=== PATIENT | male | born 1945 | race Caucasian/White ===

== ENCOUNTER 2016-12-30 09:49 | Inpatient (IN) | payer OTHER ==
--- NOTE | 2016-12-30 10:00 | EDPHY ---
HPI/HX/ROS/PE/MDM Narrative: CHIEF COMPLAINT: Chest pain. HPI: The patient is a 71-year-old male who complains of intermittent chest pain for the past week. His pain radiates into his right shoulder. He states he has experienced bouts of this chest pain at least once per day. He attributed his pain to indigestion. This morning while carrying some boards he developed sharp chest pain across the top of his chest. This pain lasted 10 minutes in duration. No associated nausea or diaphoresis. Patient has no cardiac history. REVIEW OF SYSTEMS: Aside from elements discussed in the HPI, a comprehensive 10-point review of systems was reviewed and is negative. PMH: High cholesterol. No cardiac history. SOCIAL HISTORY: . 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 Nonsmoker. PHYSICAL EXAM: General: Patient is alert, in no acute distress. ENT: Eyes are normal to inspection. ENT inspection normal. Neck: Normal inspection. Full range of motion. Respiratory: No respiratory distress. Breath sounds normal bilaterally. Cardiovascular: Regular rate and rhythm. Strong peripheral pulses. Abdomen: The abdomen is nontender to palpation. There are no peritoneal signs. There are normal bowel sounds. Back: Normal to inspection. No tenderness to palpation. Skin: Normal color. No rash. Warm and dry. Extremities: Normal appearance. Full range of motion. Neuro: Oriented x3. Normal motor function. Normal sensory function. ED Course: Patient presents with intermittent chest pain for the past week. Plan for cardiac workup including chest x-ray, EKG, Troponin, and basic lab work. EKG was ordered and interpreted by myself: Sinus rhythm. Please see [employer] system for official reading. Chest x-ray is normal. Troponin is elevated. Plan to consult cardiology. Lab work otherwise normal. 1045: I spoke to Dr. Villarreal, Cardiology, he will consult on the patient. 1050: I discussed findings with the patient. He agrees with the plan for admission. 1100: I spoke to the hospitalist, Dr. Orozco, who accepts patient for admission. MDM: This patient presents with chest pain that is concerning for ACS. This is confirmed by elevated troponin. I see no evidence for PE, TAD, PNA, PTX or chest wall trauma. - Data Points Imaging Results: Imaging Impressions Chest X-Ray 12/30/16 10:02 Impression: No acute findings in the chest. Imaging: I viewed and interpreted images myself Laboratory Results: Laboratory Results 12/30/16 10:04 12/30/16 10:04 12/30/16 12/30/16 10:04 10:04 WBC 5.57 10^3/uL 10^3/uL (3.80-9.50) RBC 4.80 10^6/uL 10^6/uL (4.40-6.38) Hgb 15.3 g/dL g/dL (13.7-17.5) Hct 45.4 % % (40.0-51.0) MCV 94.6 fL fL (81.5-99.8) MCH 31.9 pg pg (27.9-34.1) MCHC 33.7 g/dL g/dL (32.4-36.7) RDW 12.6 % % (11.5-15.2) Plt Count 181 10^3/uL 10^3/uL (150-400) MPV 11.0 fL fL (8.7-11.7) Neut % (Auto) 53.2 % % (39.3-74.2) Lymph % (Auto) 32.7 % % (15.0-45.0) Bowie % (Auto) 9.9 % % (4.5-13.0) Eos % (Auto) 3.1 % % (0.6-7.6) Baso % (Auto) 0.7 % % (0.3-1.7) Nucleat RBC Rel Count 0.0 % % (0.0-0.2) Absolute Neuts (auto) 2.97 10^3/uL 10^3/uL (1.70-6.50) Absolute Lymphs (auto) 1.82 10^3/uL 10^3/uL (1.00-3.00) Absolute Monos (auto) 0.55 10^3/uL 10^3/uL (0.30-0.80) Absolute Eos (auto) 0.17 10^3/uL 10^3/uL (0.03-0.40) Absolute Basos (auto) 0.04 10^3/uL 10^3/uL (0.02-0.10) Absolute Nucleated RBC 0.00 10^3/uL 10^3/uL (0-0.01) Immature Gran % 0.4 % % (0.0-1.1) Immature Gran # 0.02 10^3/uL 10^3/uL (0.00-0.10) Sodium 140 mEq/L mEq/L (134-144) Potassium 4.2 mEq/L mEq/L (3.5-5.2) Chloride 108 mEq/L mEq/L (97-110) Carbon Dioxide 20 mEq/l L mEq/l (22-31) Anion Gap 12 mEq/L mEq/L (8-16) BUN 21 mg/dL mg/dL (7-23) Creatinine 0.9 mg/dL mg/dL (0.7-1.3) Estimated GFR > 60 Glucose 97 mg/dL mg/dL (70-100) Calcium 9.0 mg/dL mg/dL (8.5-10.4) Troponin I 0.090 ng/mL H ng/mL (0-0.034) Medications Given: Discontinued Medications Aspirin (Aspirin) 324 mg PO EDNOW ONE Stop: 12/30/16 10:03 Last Admin: 12/30/16 10:07 Dose: 324 mg General Initial Vital Signs: Initial Vital Signs Temperature (C) 36.6 C 12/30/16 09:52 Heart Rate 73 12/30/16 09:52 Respiratory Rate 18 12/30/16 09:52 Blood Pressure 153/92 H 12/30/16 09:52 O2 Sat (%) 97 12/30/16 09:52 O2 Delivery Mode Nasal Cannula O2 (L/minute) 2.5 Allergies/Adverse Reactions: No Known Allergies Allergy (Unverified 12/30/16 09:51) Home Medications: Medication Instructions Recorded Acetaminophen/ASA/Caffeine 1 each PO DAILY PRN 12/30/16 [Excedrin Tablet (*)] Atorvastatin Calcium [Lipitor 40 40 mg PO DAILY 12/30/16 mg (*)] Aspirin [Aspirin 81mg (*)] 81 mg PO DAILY tab.chew 01/01/17 Carvedilol [Coreg (*)] 3.125 mg PO BIDMEAL #60 tab 01/01/17 Clopidogrel Bisulfate [Plavix (*)] 75 mg PO DAILY #30 tab 01/01/17 Departure - Departure Disposition: [facility] Inpatient Acute Clinical Impression: NSTEMI (non-ST elevated myocardial infarction) Chest pain Qualifiers: Chest pain type: unspecified Qualified Code(s): R07.9 - Chest pain, unspecified Condition: Fair Report Scribed for: Luis Manuel Bhatt Report Scribed by: Evelyn Moraes Date of Report: 12/30/16 Time of Report: 09:56 Physician Review and Approval Statement: Portions of this note were transcribed by a diagnostic medical sonographer. I personally performed the history, physical exam, and medical decision-making; and confirmed the accuracy of the information in the transcribed note.
[2016-12-30] MEDS ORDERED: ASPIRIN 81 MG CHEWABLE TAB PO ONE (10:02)
--- NOTE | 2016-12-30 10:02 | CPEKG ---
Heart Rate: 59 RR Interval: 1017 P-R Interval: 196 QRSD Interval: 104 QT Interval: 448 QTC Interval: 444 P [place]: 59 QRS [place]: -57 T Wave [place]: 59 EKG Severity - ABNORMAL ECG - EKG Impression: SINUS RHYTHM EKG Impression: LAD, CONSIDER LEFT ANTERIOR FASCICULAR BLOCK EKG Impression: BORDERLINE T WAVE ABNORMALITIES Electronically Signed By: Farhan Cortez 02-Jan-2017 14:29:23
[2016-12-30 10:18] LABS: % IMMATURE GRANULYOCYTES 0.4 % (0.0-1.1); ABSOLUTE IMMATURE GRANULOCYTES 0.02 10^3/uL (0.00-0.10); ADD DIFF? NO; ADD MORPH? NO; ADD SCAN? NO; ATYPICAL LYMPHOCYTE FLAG 0 (0-99); FRAGMENT RBC FLAG 0 (0-99); HEMATOCRIT 45.4 % (40.0-51.0); HEMOGLOBIN 15.3 g/dL (13.7-17.5); LEFT SHIFT FLG 0 (0-99); LIPEMIA HEMOLYSIS FLAG 80 (0-99); MEAN CELL HEMOGLOBIN 31.9 pg (27.9-34.1); MEAN CELL HEMOGLOBIN CONCENTR. 33.7 g/dL (32.4-36.7); MEAN CELL VOLUME 94.6 fL (81.5-99.8); PLATELET CLUMPS FLAG 0 (0-99); PLATELET COUNT 181 10^3/uL (150-400); RED CELL DISTRIBUTION WIDTH 12.6 % (11.5-15.2)
[2016-12-30 10:28] LABS: ANION GAP 12 mEq/L (8-16); CARBON DIOXIDE 20 mEq/l (22-31); CHLORIDE 108 mEq/L (97-110); CREATININE 0.9 mg/dL (0.7-1.3); GLOMERULAR FILTRATION RATE > 60; GLUCOSE 97 mg/dL (70-100); POTASSIUM 4.2 mEq/L (3.5-5.2); SODIUM 140 mEq/L (134-144)
[2016-12-30] MEDS ORDERED: NITROGLYCERIN 0.4 MG BTL SL PRN (13:15)
[2016-12-30] MEDS ORDERED: ATROPINE SULFATE 1 MG/10 ML SYR IVP PRN (13:15)
[2016-12-30] MEDS ORDERED: LIDOCAINE 1% 300 MG/30 ML SDV ONE (13:15)
[2016-12-30] MEDS ORDERED: ONDANSETRON 4 MG/2 ML VIAL IVP PRN (13:15)
[2016-12-30] MEDS ORDERED: HYDROCODONE/APAP 5/325 TAB PO PRN (13:15)
[2016-12-30] MEDS ORDERED: OXYCODONE/APAP 5/325 TAB PO PRN (13:15)
[2016-12-30] MEDS ORDERED: IOPAMIDOL (ISOVUE-370) 150 ML BTL IV ONE (13:16)
[2016-12-30] MEDS ORDERED: MIDAZOLAM 2 MG/2 ML VIAL ONE (13:16)
[2016-12-30] MEDS ORDERED: fentaNYL 100 MCG/2 ML INJ ONE (13:16)
--- NOTE | 2016-12-30 13:54 | GCON ---
[f rep st] CONSULTATION CARDIOVASCULAR CONSULTATION I have been asked by the emergency room staff to do cardiovascular consultation on the patient for chest pain. HISTORY OF PRESENT ILLNESS: The patient has had several weeks of chest discomfort often involving his right shoulder. He also has shoulder pain on the left side. He has been playing golf, and pain has been going on for a week to 10 days. It is a sharp pain. When it comes, it may last 10 minutes. It does not come on or go away with exertion, stress or rest. This morning, he was taking 2 boards 100 yards out to his barn, and he got a pain that was 7/10 lasting 10 minutes without shortness of breath, dizziness, lightheadedness, nausea, vomiting, sweating, or near syncopal symptoms. He has not had orthopnea , PND, dyspnea on exertion. He decided to come into the hospital to be evaluated. He has no previous history of this prior to 10 days ago. He does not have rheumatic disease, claudication or cerebrovascular disease. No hemoptysis, tuberculosis, peripheral edema. No hot swollen joints or major rashes. No trauma of the head, neck, or chest. No dysuria frequency or pyuria. No upper respiratory symptoms of any kind. No runny nose, sore throat , sinus issues. CARDIAC RISK FACTORS: His own cardiac risk factors are positive for a significant family history of premature coronary disease, for obesity and for dyslipidemia. His cardiac risk factors are negative for hypertension, diabetes , hyperuricemia, or smoking. FAMILY HISTORY: The patient's father on the patient's 23th birthday. The father was 55 years old at the time. REVIEW OF SYSTEMS: Negative for any sign other than what is noted above. A 12- point review of systems is negative. 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 He lives with his partner. He has some children, 1 of whom has a migraine for health issues. Otherwise, the children are healthy. He exercises by playing golf. He tries to get 15,000 steps a day, which he can do 5 days a week. He does not smoke. Does not drink significant amounts of alcohol. MEDICATIONS: Listed on the record. ALLERGIES: Also listed on the record. PHYSICAL EXAMINATION: VITAL SIGNS: Blood pressure 130/70, heart rate 66, respiratory rate 12, temperature 98. HEENT: Pupils equal, round, reactive. Mucous membranes and mouth moist. NECK: Supple. CARDIOVASCULAR: S1, S2. Soft systolic murmur at the left sternal border. No diastolic murmur. No S3, S4. No rubs. PULMONARY: Rhonchi bilaterally. No rales, wheezing, or dullness. ABDOMEN: Soft, nontender, without masses. CVA: No tenderness. SKIN: Age-related changes. EXTREMITIES: No edema, inflammation or ulceration. PSYCH: No obvious anxiety or depression. NEURO: Cranial nerves 2 -12 grossly normal. Motor and sensory intact. LABS AND STUDIES: His troponin is mildly elevated. Creatinine and glucose are reportedly within normal limits. His EKG shows no acute changes per the emergency room; I have not seen that myself. His white count is 5.5, hematocrit 45, platelets are 181. Sodium 140, potassium 4.2, chloride 108, CO2 of 20, BUN 20, creatinine 0.9. Troponin is 0.09, which is an indeterminate value. His electrocardiogram showed diffuse nonspecific ST-T changes with terminal T- wave inversion in V2. It is abnormal with borderline left axis deviation. Chest x-ray shows no acute findings. ASSESSMENT AND PLAN: 1. Chest pain. 2. Abnormal troponin. He has had a chest pain syndrome. He has an indeterminate troponin. We will proceed with coronary angiography. I have laid out for him and his partner, whom I know well because I took care of her father, all the options including second opinions, medical therapy, observation, noninvasive testing, watching him in the hospital, doing nothing, nontraditional therapy, etc. I have also gone over with him the risks of catheterization which include stroke, , limb loss, renal failure, myocardial infarction, infection, bleeding, and he would like to proceed with angiography. He knows what the options are. He knows what we can offer, and he would like to stay and get a definitive diagnosis. He does have significant risk factors for coronary disease with his family history, his obesity, his hyperlipidemia. In terms of the differential diagnosis, he may well have musculoskeletal problems or GI problems, although he does not have a lot of GI symptoms. There is nothing to suggest disease of the great vessels as his pulses are full and equal. There is nothing to suggest significant valvular disease or other cardiomyopathy or pericardial disease so we will do an echocardiographic study and see if that helps, and he will get further workup as we work through this process. I have answered all of he and his partner's questions, and they would like to proceed. I have talked to the emergency room physician about this, and we will proceed. /[id number]/MODL and [id number]/MODL [facility]ENTERJannet
[2016-12-30] MEDS ORDERED: ACETAMINOPHEN 325 MG TAB PO PRN (14:03)
--- NOTE | 2016-12-30 14:39 | GHP ---
[f rep st] HISTORY AND PHYSICAL DATE OF ADMISSION: 12/30/2016 CHIEF COMPLAINT: Chest pain. HISTORY OF PRESENT ILLNESS: The patient is a 71-year-old male who has been having chest pain off an d on for the last 2 weeks. He describes it as sharp across the front of his chest, radiating to his shoulder and his jaw. He has gotten chest pain with ambulation and had an episode yesterday while golfing. Sometimes it gets better with rest, sometimes not. He also gets this sometimes at night. Each episode lasts anywhere from 10-30 minutes. It is nonpleuritic. He does have some associated shortness of breath. PAST MEDICAL HISTORY: Hyperlipidemia. MEDICATIONS: Please see computer record for full detailed list. ALLERGIES: No known drug allergies. SOCIAL HISTORY: He smoked for 10 years, but quit 20 years ago. He drinks wine with dinner. He reyes es with his . 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 REVIEW OF SYSTEMS: Complete review of systems obtained. Review of systems is negative on constitut ional, HEENT, GI, pulmonary, cardiovascular, , hematology, skin, musculoskeletal, endocrine and ps ych. Pertinent positives as in HPI. FAMILY HISTORY: Positive for coronary artery disease. His father of a massive MA at age 55 an d had suffered from coronary disease for many years prior to that. PHYSICAL EXAMINATION: GENERAL: Well-developed, well-nourished male in no distress. VITAL SIGNS: Temperature 36.6, pulse 73, blood pressure 153/92, saturating 97% on room air. EYES: Normal conjun ctivae. Pupils react to light. ENT: Normal ears and nose. Hearing intact. Normal lips and teeth . Oropharynx moist. NECK: Trachea midline. No thyromegaly. CHEST: Normal respiratory effort. Lungs clear to auscultation bilaterally. CARDIOVASCULAR: Regular rate and rhythm. No murmur. No lower extremity edema. ABDOMEN: Soft, nontender. No hepatosplenomegaly. SKIN: Warm, dry, intact . No rash. MUSCULOSKELETAL: No cyanosis or clubbing. Strength 5/5 upper and lower extremities. NEUROLOGIC: Cranial nerves intact. Normal sensation to light touch. PSYCHIATRIC: Alert and orien curtis x3. Normal affect. Normal judgment. Normal memory. LABORATORY DATA: White count 5.57, hematocrit 45.4, platelets 181. Sodium 140, potassium 4.2, chlo ride 108, bicarb 20, BUN 21, creatinine 0.9, glucose 97. Troponin 0.09. EKG viewed by me. My pers onal interpretation is normal sinus rhythm and anterior lateral T-wave flattening. Chest x-ray is n egative. ASSESSMENT AND PLAN: 1. Chest pain. History is quite concerning for ischemia and he also has multiple risk factors incl uding family history, hyperlipidemia and hypertension. His initial troponin is borderline elevated. Cardiology has already seen him in consultation. Initially, there was talk of bringing him immedi ately to the catheterization lab, but Dr. Villarreal has now decided to trend troponins overnight and pu rsue stress testing in the morning. If there is any recurrence of chest pain or bump in troponin ov ashlee, could also reconsider cardiac catheterization in the morning. For now, we will treat medic ally with morphine as needed, nitroglycerin as needed and aspirin. 2. Hyperlipidemia. We will continue his atorvastatin and check lipids in the morning. 3. Hypertension. Blood pressure is quite elevated here, although he denies having a history of hig h blood pressure in the past. This will be monitored and, if persistent, may need to initiate medic ations prior to discharge. CODE STATUS: Full. ADMISSION STATUS: 1. Will admit to observation. 2. DVT prophylaxis is low risk and pending possible procedure, so hold pharmacologic prophylaxis. /[id number]/MODL
[2016-12-30] MEDS: CLOPIDOGREL BISULFATE 75 MG TAB PO SCH (15:01)
[2016-12-31 04:52] LABS: CHOLESTEROL 163 mg/dL (140-220); CHOLESTEROL/HDL RATIO 3.13 RATIO (1.00-4.97); HIGH DENSITY LIPOPROTEIN 52 mg/dL (40-65); LDL/HDL RATIO 1.69 RATIO (1.00-3.64); LOW DENSITY LIPOPROTEIN 88 mg/dL (80-100); NON-HIGH DENSITY LIPOPROTEIN 111 mg/dL (90-129); TRIGLYCERIDE 117 mg/dL (40-150); VERY LOW DENSITY LIPOPROTEINS 23 mg/dL (8-25)
[2016-12-31 05:04] LABS: TROPONIN I 0.122 ng/mL (0-0.034)
--- NOTE | 2016-12-31 05:59 | CPEKG ---
Heart Rate: 49 RR Interval: 1224 P-R Interval: 204 QRSD Interval: 102 QT Interval: 488 QTC Interval: 441 P [place]: 64 QRS [place]: -31 T Wave [place]: 69 EKG Severity - BORDERLINE ECG - EKG Impression: SINUS BRADYCARDIA EKG Impression: LEFT AXIS DEVIATION EKG Impression: BORDERLINE T WAVE ABNORMALITIES Electronically Signed By: Farhan Cortez 31-Dec-2016 21:29:04
[2016-12-31] MEDS: ATORVASTATIN CALCIUM 40 MG TAB PO SCH (08:00)
[2016-12-31] MEDS: CLOPIDOGREL BISULFATE 75 MG TAB PO SCH (08:00)
[2016-12-31] MEDS: ASPIRIN 81 MG CHEWABLE TAB PO SCH (08:00)
[2016-12-31] MEDS ORDERED: ATORVASTATIN CALCIUM 20 MG TAB PO SCH (09:00)
--- NOTE | 2016-12-31 09:01 | ECHO ---
[id number] + + [address] : : [place] [address] : : [phone] + Adult Echocardiographic Report + -+ :Name: PITER MAHARAJ ESteverton Date: 12/30/2016 12:55 PM BP: 164/90 mmHg : : Hospital Admission Number: [id number] : :: 1945 Gender: Male Height: 74 in : :Age: 71 yrs Race: WH Weight: 219 lb : :Reason For Study: chest pain : : BSA: 2.3 meters 2: :History: chest pain : + -+ MMode/2D Measurements \T\ Calculations IVSd: 1.1 cm RVDd: 2.8 cm FS: 33.7 % Ao root diam: LVPWd: 1.2 cm LVIDd: 4.5 cm EDV(Teich): 3.7 cm LVIDs: 3.0 cm 90.4 ml ESV(Teich): 33.7 ml EF(Teich): 62.7 % LVLd ap4: 8.2 cm SV(MOD-sp4): EDV(MOD-sp4): 68.0 ml 119.0 ml LVLs ap4: 7.3 cm ESV(MOD-sp4): 51.0 ml EF(MOD-sp4): 57.1 % Normal Measurement Values: + + :LVIDd (3.5-5.7cm) IVSd (0.6-1.1cm) LVPWd (0.6-1.1cm) Aortic Root (2.0-3.7cm)Left Atrium (1.5-4.0cm): :LV Vol(d) (76-115ml) LV Vol(s) (29-48ml) Ejec Fraction (50-65%)PV Anastacio (0.6- 1.2m/s) TV Anastacio (0.4-1.0m/s) : :MV E Anastacio (0.8-1.0m/s)MV A Anastacio (0.3-1.0m/s)LVOT Anastacio (0.7-1.2m/s) Asc Ao Anastacio ( 0.9-1.8m/s) : + + Doppler Measurements \T\ Calculations MV E max anastacio: Ao V2 max: LV V1 max: PA V2 max: 66.1 cm/sec 131.7 cm/sec 111.6 cm/sec 76.4 cm/sec MV A max anastacio: Ao max PG: LV V1 max PG: PA max P.1 cm/sec 6.9 mmHg 5.0 mmHg 2.3 mmHg MV E/A: 0.61 MV dec time: 0.30 sec Left Ventricle The left ventricle is normal in size and function. There is mild concentric left ventricular hypertrophy. Ejection Fraction = 55-60%. Very small area of questionable hypokinesis versus normal variant at hinge point in basal/inferior wall. Right Ventricle The right ventricle is normal in size and function. Atria The left atrial size is normal. Right atrial size is normal. Mitral Valve The mitral valve is normal in structure and function. There is no mitral valve stenosis. There is no mitral regurgitation noted. Tricuspid Valve The tricuspid valve is normal in structure and function. There is no tricuspid stenosis. No tricuspid regurgitation. Aortic Valve The aortic valve is trileaflet. There is no aortic stenosis. Mild aortic regurgitation. Pulmonic Valve The pulmonic valve is not well visualized. Great Vessels The aortic root is normal size. Mildly dilated ascending aorta. Pericardium/Pleural There is no pericardial effusion. Conclusion A two-dimensional transthoracic echocardiogram with M-mode and Doppler was performed. A two-dimensional transthoracic echocardiogram with M-mode and Doppler was performed. The left ventricle is normal in size and function. There is mild concentric left ventricular hypertrophy. Ejection Fraction = 55-60%. Very small area of questionable hypokinesis versus normal variant at hinge point in basal/inferior wall. Mild aortic regurgitation. Mildly dilated ascending aorta. Final Reading Physician: Aram Corbett, Melectronically signed on 12/31/2016 09:00 AM Ordering Physician: Luis Manuel Bhatt Performed By: Anjana Puente
--- NOTE | 2016-12-31 09:26 | SOAPPROG ---
[facility] Progress Note Assessment/Plan: Assessment: 1. Chest pain 2. Elevated troponin 3. Obesity 4. Hyperlipidemia 5. Family history of premature coronary artery disease. At this time his troponin has turned positive. He agrees to coronary angiography. I have reviewed with him the risk of catheterization include stroke limb loss renal failure myocardial infarction infection bleeding etc I reviewed with him the options of observing him, further noninvasive testing, medical therapy, hospital observation, doing nothing, getting 2nd opinions, or nontraditional therapy that is available to him. He and his partner would like to proceed with coronary angiography. I have reviewed this with Dr. Vanegas who is going to perform the procedure this morning. I am happy to follow up the patient after he is discharged. All his questions have been answered. I have answered his partners questions. Plan: 12/31/16 09:29 The Subjective: He is feeling well today. He does not have chest pain He is not complaining of shortness of breath. He is very concerned about the different options are for the cause of his pain. I have reviewed some of this with him. I have answered his questions. He is not having new complaints of nausea vomiting diarrhea etc. He is not having neurologic complaints He is not having palpitations. Objective: Vital Signs Temp Pulse Resp BP Pulse Ox 37.3 C 52 L 16 138/91 H 93 12/31/16 07:02 12/31/16 07:02 12/31/16 07:02 12/31/16 07:02 12/31/16 07:02 12/30/16 12/31/16 01/01/17 05:59 05:59 05:59 Intake Total 0 Balance 0 Laboratory Tests 12/30/16 12/30/16 12/30/16 10:04 10:04 15:56 WBC 5.57 Hct 45.4 Plt Count 181 Troponin I 0.090 H 0.101 H Triglycerides Cholesterol LDL Cholesterol, Calc HDL Cholesterol 12/31/16 03:47 WBC Hct Plt Count Troponin I 0.122 H Triglycerides 117 Cholesterol 163 LDL Cholesterol, Calc 88 HDL Cholesterol 52 Physical Exam - Physical Exam General Appearance: alert, no apparent distress EENT: PERRL/EOMI Respiratory: lungs clear Cardiac/Chest: regular rate, rhythm Skin: normal color Neuro/Psych: alert, normal mood/affect ICD10 Worksheet Patient Problems: Problems Problem Status Onset Chest pain Acute Elevated troponin Acute
[2016-12-31] MEDS ORDERED: fentaNYL 100 MCG/2 ML INJ ONE ×2 (09:40→10:46)
[2016-12-31] MEDS ORDERED: LIDOCAINE 1% 300 MG/30 ML SDV ONE (09:40)
[2016-12-31] MEDS ORDERED: IOPAMIDOL (ISOVUE-370) 150 ML BTL IV ONE (09:41)
[2016-12-31] MEDS ORDERED: MIDAZOLAM 2 MG/2 ML VIAL ONE ×2 (09:41→10:46)
[2016-12-31] MEDS ORDERED: BIVALIRUDIN 250 MG/5 ML VIAL IV ONE ×2 (09:53→10:46)
[2016-12-31] MEDS ORDERED: NITROGLYCERIN 1,500 MCG/15 ML VIAL MISC ONE (09:53)
[2016-12-31] MEDS ORDERED: CLOPIDOGREL BISULFATE 75 MG TAB ONE ×2 (10:57→10:58)
[2016-12-31] MEDS ORDERED: LORazepam 2 MG/ML INJ IVP PRN (11:15)
[2016-12-31] MEDS ORDERED: CLOPIDOGREL BISULFATE 75 MG TAB PO ONE (11:15)
[2016-12-31] MEDS ORDERED: TEMAZEPAM 15 MG CAP PO PRN (11:15)
[2016-12-31] MEDS ORDERED: CITRIC ACID/SODIUM CITRATE 30 ML UDCUP ONE (11:54)
[2016-12-31] MEDS ORDERED: CITRIC ACID/SODIUM CITRATE 30 ML UDCUP PO ONE (12:00)
--- NOTE | 2016-12-31 12:01 | CPEKG ---
Heart Rate: 56 RR Interval: 1071 P-R Interval: 204 QRSD Interval: 100 QT Interval: 488 QTC Interval: 472 P [place]: 68 QRS [place]: -39 T Wave [place]: 60 EKG Severity - OTHERWISE NORMAL ECG - EKG Impression: SINUS RHYTHM EKG Impression: LEFT AXIS DEVIATION Electronically Signed By: Farhan Cortez 31-Dec-2016 21:29:08
[2016-12-31] MEDS ORDERED: LABETALOL HCL 50 MG/10 ML SYR ONE (12:12)
[2016-12-31] MEDS ORDERED: LABETALOL HCL 50 MG/10 ML SYR IVP ONE (12:30)
--- NOTE | 2016-12-31 14:02 | HOSPPROG ---
Hospitalist Progress Note Assessment/Plan: * Non STEMI s/p stent circ -ASA, Plavix, Coreg * Hyperlipidemia -patient admits to taking his statin very inconsistently -educated regarding the importance of statin tx * HTN - coreg started Subjective: No new complaints. Objective: Vital Signs Temp Pulse Resp BP Pulse Ox 36.4 C 48 L 14 126/72 H 96 12/31/16 12:59 12/31/16 12:59 12/31/16 12:59 12/31/16 12:59 12/31/16 12:59 12/30/16 12/31/16 01/01/17 05:59 05:59 05:59 Intake Total 0 350 Balance 0 350 d/w Dr. Vanegas and Aric - to chemical lab technician this am - circ stented ECHO - hypokinesis of inferior wall - Physical Exam Constitutional: no apparent distress, appears nourished, not in pain Cardiovascular: regular rate and rhythym, no murmur, rub, or gallop Respiratory: no respiratory distress, no rales or rhonchi, clear to auscultation Gastrointestinal: normoactive bowel sounds, soft, non-tender abdomen, no palpable masses Skin: no rashes or abrasions, no fluctuance, no induration Neurologic: AAOx3, sensation intact bilaterally Psychiatric: interacting appropriately, not anxious, not encephalopathic, thought process linear ICD10 Worksheet Patient Problems: Problems Problem Status Onset Chest pain Acute Elevated troponin Acute
[2016-12-31] MEDS: CARVEDILOL 3.125 MG TAB PO SCH (17:52)
--- NOTE | 2016-12-31 18:21 | CPIP ---
[f rep st] INVASIVE CARDIAC PROCEDURE DATE OF PROCEDURE: 12/31/2016 PROCEDURE: 1. Coronary angiography. 2. Left ventriculography. 3. Stenting of circumflex coronary artery with Synergy drug-eluting stent. INDICATION: Acute coronary syndrome with elevated troponin. ACCESS: Patient was prepped and draped in sterile fashion. 1% lidocaine was used to anesthetize th e right inguinal region. A 6-Algerian introducer sheath was placed selectively into the right common femoral artery via modified Seldinger technique. CORONARY ANGIOGRAPHY: A 6-Algerian JL 4.5 was advanced to the left main coronary artery and images ob tained. The left main coronary artery bifurcated into an LAD and circumflex coronary arteries. The left main was relatively short but appeared normal. The left anterior descending coronary artery g ave rise to 2 diagonal branches. The left anterior descending coronary artery was diffusely disease d. In the proximal segment of the left anterior descending coronary artery, there was a long segmen rubina 35% stenosis present. In the mid vessel, there is a single, discrete, 40% to 50% stenosis prese nt. The diagonal arteries appear free of any significant disease. The circumflex coronary artery g ave rise to 4 OM branches. The circumflex coronary artery had mild diffuse disease throughout. In the mid vessel, there was a single discrete 90% stenosis present. A 6-Algerian JR4 was advanced to th e right coronary artery and images obtained. The right coronary artery was dominant. The right cor onary artery had a single discrete 50% stenosis in the midvessel. LEFT VENTRICULOGRAPHY: A 6-Algerian pigtail catheter was advanced into the left ventricle and images obtained. Left ventricle is normal size, had normal systolic function. The estimated ejection frac tion was 60%. There were no segmental wall motion abnormalities present. The left ventricular end- diastolic pressure was 16 mmHg. PERCUTANEOUS CORONARY INTERVENTION OF CIRCUMFLEX CORONARY ARTERY: A 6-Algerian EBU 3.75 was advanced to the left main coronary artery and images obtained. Angiography confirmed the presence of a high- grade stenosis involving the circumflex coronary artery. A Luge wire was placed in the distal vesse l and position verified by angiography. A 2.5 x 15 Emerge balloon was used to pre-dilate the lesion . Followup angiography demonstrated significant residual stenosis. A 2.5 x 20 Synergy drug-eluting stent was then placed across the lesion, deployed. Followup angiography demonstrated FARHAN 3 flow. No residual stenosis. COMPLICATIONS: None. CONCLUSIONS: 1. 40% to 50% left anterior descending stenosis. 2. 50% mid right coronary artery stenosis. 3. 90% circumflex artery stenosis. 4. Normal left ventricular systolic function. 5. Status post successful percutaneous coronary intervention of the circumflex coronary artery will Holloway drug-eluting stent. /[id number]/MODL
[2017-01-01 04:49] LABS: % IMMATURE GRANULYOCYTES 0.3 % (0.0-1.1); ABSOLUTE IMMATURE GRANULOCYTES 0.03 10^3/uL (0.00-0.10); ADD DIFF? NO; ADD MORPH? NO; ADD SCAN? NO; ATYPICAL LYMPHOCYTE FLAG 0 (0-99); FRAGMENT RBC FLAG 0 (0-99); HEMATOCRIT 46.4 % (40.0-51.0); HEMOGLOBIN 15.4 g/dL (13.7-17.5); LEFT SHIFT FLG 0 (0-99); LIPEMIA HEMOLYSIS FLAG 80 (0-99); MEAN CELL HEMOGLOBIN CONCENTR. 33.2 g/dL (32.4-36.7); MEAN CELL VOLUME 96.3 fL (81.5-99.8); MEAN PLATELET VOLUME 11.2 fL (8.7-11.7); PLATELET CLUMPS FLAG 10 (0-99); PLATELET COUNT 179 10^3/uL (150-400); RED BLOOD CELL COUNT 4.82 10^6/uL (4.40-6.38); RED CELL DISTRIBUTION WIDTH 12.7 % (11.5-15.2)
[2017-01-01 05:01] LABS: ANION GAP 2 mEq/L (8-16); CALCIUM 8.9 mg/dL (8.5-10.4); CARBON DIOXIDE 23 mEq/l (22-31); CHLORIDE 108 mEq/L (97-110); GLOMERULAR FILTRATION RATE > 60; GLUCOSE 91 mg/dL (70-100); POTASSIUM 4.2 mEq/L (3.5-5.2); SODIUM 133 mEq/L (134-144)
[2017-01-01 07:05] VITALS: BP 149/78; PULSE 57; RESP 12; TEMP 97.9; O2SAT 93
[2017-01-01] MEDS: ASPIRIN 81 MG CHEWABLE TAB PO SCH (08:18)
[2017-01-01] MEDS: ATORVASTATIN CALCIUM 40 MG TAB PO SCH (08:18)
[2017-01-01] MEDS: CARVEDILOL 3.125 MG TAB PO SCH (08:19)
--- NOTE | 2017-01-01 08:43 | CPEKG ---
Heart Rate: 53 RR Interval: 1132 P-R Interval: 200 QRSD Interval: 104 QT Interval: 456 QTC Interval: 429 P Blackshear: 62 QRS Blackshear: 2 T Wave Blackshear: 50 EKG Severity - NORMAL ECG - EKG Impression: SINUS RHYTHM Electronically Signed By: Ady Gutierrez 01-Jan-2017 12:21:20
[2017-01-01] MEDS ORDERED: CLOPIDOGREL BISULFATE 75 MG TAB PO SCH (09:00)
--- NOTE | 2017-01-01 11:36 | PDCARPN ---
Cardiology Progress Note Assessment/Plan: Assessment: 1. Chest pain 2. Elevated troponin 3. Family history of Premature CAD 4. Hyperlipidemia 5. CAD with stent to Circumflex. He had a positive Troponin with chest pain and known family history of CAD. He was taken to the laboratory chemical assistant by Dr Farhan Vanegas and a Synergy LEXY was placed in the Circumflex. No complications. Today he feels great with no chest pain. Telemetry shows a sinus bradycardia. Right groin site intact with no bleeding or ecchymosis. He understands the groin precautions for 7 days. Follow Low fat , low sodium cardiac diet. He will follow up in clinic with Dr Villarreal January 10 at 11:30 AM. Cardiac Rehab has been in to get him enrolled. He is eager to participate. Plan: 1) Discharge today. 2) Follow up w/ Dr Villarreal in one week. 3) Enroll in Cardiac Rehab. 01/01/17 11:27 Subjective: I feel great today. Ready to go home. Reviewed/Discussed With: family, hospitalist, multidisciplinary team Time Spent With Patient: 30 minutes Objective: Vital Signs (8 Hrs) Temp Pulse Resp BP Pulse Ox 01/01/17 07:05 36.6 C 57 L 12 149/78 H 93 01/01/17 04:00 36.8 C 53 L 16 146/53 H 96 Intake/Output (24 Hrs) 12/31/16 01/01/17 01/02/17 05:59 05:59 05:59 Intake Total 320 Output Total 2 Balance 318 Intake: Oral (ml) 320 IV Intake (ml) 0 Output: Urine (ml) 2 Toilet 2 Result Diagrams: 01/01/17 03:50 01/01/17 03:50 - Physical Exam Cardiovascular: regular rate and rhythm, no murmurs, no rubs, no gallops Peripheral Pulses: 2+: dorsalis-pedis (R), dorsalis-pedis (L) Respiratory: clear to auscultate bilat, no crackles, no wheezes Skin: no rashes, warm, no edema, other (R groin cath site nontender, no ecchymosis or bleeding. No Femeral bruit.) Neurologic: AAOx3 Psychiatric: cooperative, interactive ICD10 Worksheet Patient Problems: Problems Problem Status Onset Chest pain Acute Elevated troponin Acute chronic disease mgmt/transitional care Acute
--- NOTE | 2017-01-01 17:29 | GDS ---
[f rep st] DISCHARGE SUMMARY ALL DIAGNOSES: 1. Rju-UK-tqbjbtnsk myocardial infarction, status post stent to the circum. 2. Hyperlipidemia. 3. Hypertension. HOSPITAL COURSE: A 71-year-old man, who presented with chest pain. He had a troponin peak of 0.12. Underwent a cath by Dr. Vanegas. Placed a stent to his left circ. He has not had any ongoing ches t pain. He will be discharged in stable condition. New medications include aspirin, Plavix, Coreg, atorvastatin (which he was not taking consistently but was prescribed). I discussed all this with him. Discussed reasons to return emergently to the emergency department as well. He understands al l this. He has been seen by Cardiology and cleared for discharge today. BILLING: I spent more than 30 minutes on the day of discharge coordinating care. /[id number]/MODL
== END 2017-01-01 10:40 | disposition home or self-care (01) | DRG 247 ==
LOC: F2W 12:17 → OBSVTOIN 12-31 14:11
PROVIDERS: ADMIT Internal Medicine; ATTEND Internal Medicine
DX: I21.4 Non-ST elevation (NSTEMI) myocardial infarction (principal); E78.5 Hyperlipidemia, unspecified; I10 Essential (primary) hypertension; E66.9 Obesity, unspecified; Z82.49 Family history of ischemic heart disease and other diseases of the circulatory system
CPT/HCPCS: C1725; C1760; C1769; C1874; C1887; C9600; G0378; J0583; J1644; J2250; J3010; Q9967

== ENCOUNTER 2017-01-31 11:29 | Emergency (ER) | payer OTHER ==
[2017-01-31 11:34] VITALS: BP 121/89; PULSE 59; RESP 18; TEMP 97.9; O2SAT 97
[2017-01-31] MEDS ORDERED: TDAP ADULT 0.5 ML INJ (BOOSTRIX) IM ONE (12:04)
--- NOTE | 2017-01-31 12:06 | EDPHY ---
H & P Stated Complaint: cut 4th and 5th digits of r hand last evening at 6pm HPI/ROS: Chief complaint: Right hand laceration History of present illness: This is a 71-year-old male who presents to the emergency department for right hand laceration. Patient states last night, approximately 18 hours ago a cook and I slipped cutting him between his 4th and 5th finger. He does report initially was painful but pain has improved. Bleeding has been controlled with a dressing. He states he is still able to move his hand well. No report of abnormal coolness or paresthesias in the finger. No other injuries reported. He is unsure of when he received his last tetanus shot. - Personal History Current Tetanus/Diphtheria Vaccine: Unsure - Medical/Surgical History Hx Asthma: No Hx Chronic Respiratory Disease: No Hx Diabetes: No Hx Cardiac Disease: Yes Hx Renal Disease: No Hx Cirrhosis: No Hx Alcoholism: No Hx HIV/AIDS: No Hx Splenectomy or Spleen Trauma: No Other PMH: Hyperlipidemia / cardiac stents - Social History Smoking Status: Never smoked - Physical Exam Exam: General: Alert, nontoxic Skin: 1 cm laceration to the interdigital webspace between the 4th and 5th finger of the right hand. It approximates well. There is bruising around the laceration on the dorsal side of the hand. Musculoskeletal: Patient is moving the digits of his right hand in all joints all rey well and normal according to him, he is moving his wrist in all rey well. Vascular: Capillary refill brisk in all digits of the right hand. Radial pulse 2 +. Neurologic: Sensation intact in the 4th and 5th finger using light touch and two-point discrimination. Constitutional: Initial Vital Signs Temperature (C) 36.6 C 01/31/17 11:32 Heart Rate 59 L 01/31/17 11:32 Respiratory Rate 18 01/31/17 11:32 Blood Pressure 121/89 H 01/31/17 11:32 O2 Sat (%) 97 01/31/17 11:32 O2 Delivery Mode Room Air Allergies/Adverse Reactions: No Known Allergies Allergy (Verified 01/31/17 11:31) Home Medications: Medication Instructions Recorded Acetaminophen/ASA/Caffeine 1 each PO DAILY PRN 12/30/16 [Excedrin Tablet (*)] Atorvastatin Calcium [Lipitor 40 40 mg PO DAILY 12/30/16 mg (*)] Aspirin [Aspirin 81mg (*)] 81 mg PO DAILY tab.chew 01/01/17 Carvedilol [Coreg (*)] 3.125 mg PO BIDMEAL #60 tab 01/01/17 Clopidogrel Bisulfate [Plavix (*)] 75 mg PO DAILY #30 tab 01/01/17 Medical Decision Making ED Course/Re-evaluation: Patient seen under the supervision of my secondary supervising physician Dr. Nicky Bryan. Patient presents to the emergency department after sustaining a laceration yesterday between his 4th and 5th finger. His fingers appear to be neurovascularly intact. He appears to have good musculoskeletal control. Wound is cleaned. Given the length of time from injury I will not primarily close it. We have discussed allowing it to heal by secondary intention or delayed primary closure. His tetanus is updated. He is to follow up with his primary care doctor or a hand doctor for recheck. Return precautions are given. - Data Points Medications Given: Discontinued Medications Diphtheria/Tetanus/Acell Pertussis (Boostrix) 0.5 ml IM .ONCE ONE Stop: 01/31/17 12:05 Last Admin: 01/31/17 12:25 Dose: 0.5 ml Departure - Departure Disposition: Home, Routine, Self-Care Clinical Impression: Hand laceration Qualifiers: Encounter type: initial encounter Foreign body presence: without foreign body Laterality: right Qualified Code(s): S61.411A - Laceration without foreign body of right hand, initial encounter Condition: Good Instructions: Laceration (ED), Acute Wounds (ED) Additional Instructions: Follow-up with her primary care doctor or hand doctor for recheck You can return in 3-4 days for delayed primary closure or lower wound to heal by secondary intention as discussed If symptoms worsen or new symptoms develop return to the emergency room for recheck Referrals: Eric Chinchilla MD [Primary Care Provider] - As per Instructions Ariana Gibbs MD [Medical Doctor] - As per Instructions
[2017-01-31] MEDS ORDERED: LET GEL TOPICAL 1 EA SYR TP ONE (12:12)
== END 2017-01-31 12:39 | disposition home or self-care (01) ==
DX: S61.411A Laceration without foreign body of right hand, initial encounter (principal); Z23 Encounter for immunization; Z95.5 Presence of coronary angioplasty implant and graft; Z79.82 Long term (current) use of aspirin; W45.8XXA Other foreign body or object entering through skin, initial encounter; Y99.8 Other external cause status; Y93.G3 Activity, cooking and baking

== ENCOUNTER → 2017-02-21 | Outpatient (CLI) | payer OTHER | LOC: GIMAGING 15:57 | PROVIDERS: ATTEND Family Medicine | DX: M25.712 Osteophyte, left shoulder (principal) | CPT/HCPCS: 73030-PO ==

== ENCOUNTER → 2017-03-01 | Outpatient (CLI) | payer OTHER | LOC: FIMAGING 09:22 | PROVIDERS: ATTEND Family Medicine | DX: G89.29 Other chronic pain (principal); M12.812 Other specific arthropathies, not elsewhere classified, left shoulder; M75.92 Shoulder lesion, unspecified, left shoulder; M24.812 Other specific joint derangements of left shoulder, not elsewhere classified ==

== ENCOUNTER → 2018-03-26 | Outpatient (CLI) | payer OTHER | LOC: GIMAGING 18:08 | PROVIDERS: ATTEND Family Medicine | DX: M54.5 Low back pain (principal); M62.838 Other muscle spasm; M51.86 Other intervertebral disc disorders, lumbar region; M51.87 Other intervertebral disc disorders, lumbosacral region | CPT/HCPCS: 72100-PO ==

== ENCOUNTER → 2018-03-28 | Outpatient (CLI) | payer OTHER | LOC: FIMAGING 09:19 | PROVIDERS: ATTEND Family Medicine | DX: I71.4 Abdominal aortic aneurysm, without rupture (principal) ==

== ENCOUNTER → 2018-10-08 | Outpatient (CLI) | payer OTHER | DX: I25.10 Atherosclerotic heart disease of native coronary artery without angina pectoris (principal); I71.4 Abdominal aortic aneurysm, without rupture | CPT/HCPCS: 78452; 93017; A9500 ==

== ENCOUNTER → 2018-12-04 | Outpatient (CLI) | payer OTHER | LOC: FIMAGING 09:08 ==